=== PATIENT | male | born 1955 | race Caucasian/White ===

== ENCOUNTER 2024-10-21 11:38 | Emergency (ER) | payer OTHER ==
[~2024-10-21] VITALS: Ht 170.2 cm; Wt 69.2 kg
--- NOTE | 2024-10-21 11:56 | ED.PDOC ---
HPI (NEURO) HPI Comments Poor Historian. 69y M who presents to the ED with the his five. Patient was sent directly from Radiology outpatient center after abnormal findings on his CT scan of the head. -Per pt , pt was at [facility] office today and had CT head with and w/o contrast study and told to come to the ED due to abnormal findings on CT report -Pt presents to the ED, with no complaints whatsoever. [facility] office was called with phone number provided by who faxed CT report with the following: Impression: Findings consistent with large subacute hemorrhagic cortical infarct involving the left frontal lobe. Infarct and edema extends along the cortex and cm anterior posterior extent. Additional blood products along the cortex or bubble subacute hematoma is possible proteinaceous fluid collections associated with the area of infarction. Edema at the apparent an effort site crate a partial effacement of the left lateral ventricle and a 4 mm midline shift to the right. Remains blood flow in the internal carotid arteries an M1 course of the left middle cerebral artery at the distal branches. Mild leukoencephalopathy at the partial occipital region separate from the area of cortical infarct and edema. Follow up MRI of the brain with without contrast recommended and follow up CT exams. -Pt states pt spouse had not been speaking to and noted pt exhibiting weakness and called EMS 1 week ago. Pt spouse states EMS told pt to get onto gurney to be taken to ED but pt refused and EMS told they cannot take pt without the patient willingness and EMS left residence -PT states pt continued to act abnormal and was referred to get outpatient CT Head done which pt was at today. Per , patient has been having difficulty with his speech and has been acting differently lately. She says that his speech has improved slightly in the last few days. Patient is not on any blood thinners. Past Medical History: DM 2, low blood pressure, hyperlipidemia, L eye cataract Past Surgical History: carotid artery procedure the end of September. allergies: nkda social history: endorses tobacco use, deneis ETOH use, denies drug use REVIEW OF SYSTEMS: CONSTITUTIONAL: Denies acute: fever, diaphoresis, chills, HEAD: Denies acute: headache, photophobia Eyes: Denies acute: Double vision, vision loss, eye pain, eye discharge. EARS: Denies acute: tinnitus, hearing loss, ear discharge, ear pain, THROAT: Denies acute: sore throat, swelling, difficulty swallowing , pain with swallowing, change in voice. NECK: Denies acute: neck pain, neck swelling, stiff neck. HEART: Denies acute : chest pain, palpitations, LUNGS: Denies acute: SOB, wheezing, cough, hemoptysis ABDOMEN: Denies acute: abdominal pain, Nausea, Vomiting, diarrhea, melena , hematemesis, hematochezia SKIN: Denies acute: rash, redness, lesions, itchiness. EXTREMITIES: Denies acute: calf pain, numbness, tingling, weakness, denies pain in extremity. Denies acute: Low back pain. Neuro: Denies acute: motor or sensory focal neurological deficit, tremors, seizure like activity, confusion, dizziness, change in mental status, loss of bowel or bladder function, cauda equina like symptoms. : Denies acute: dysuria, hematuria, flank pain, increase in urinary frequency. PSYCH: Denies acute: hallucination, suicidal ideation, homicidal ideation. PHYSICAL EXAM: General: no acute distress, awake and alert. Head: normocephalic, atraumatic. Neck: supple, trachea is midline, no swelling. Throat: Normal phonation. Eyes:, no erythema, no purulent discharge, no proptosis, no icterus. Heart: regular rate, regular rhythm, no significant murmur appreciated. Lungs: no apparent respiratory distress, Able to speak in full sentences. No wheezing, no rhonchi, no crackles. No stridors Clear to auscultation bilaterally. Abdomen: non tender to palpation, non distended, soft, no guarding, no rebound, + bowel sounds. Neuro: Awake, Alert, oriented to name, self, situation, follows commands GCS=15. Speech is normal. Skin: no petechia, no purpura, no cyanosis, non-pale, not jaundice. Lower extremities: --no - Pitting edema no deformity, no focal swelling, no calf TTP. Makes eye contact. moves all four extremities. Face: no apparent facial droop. Ambulating in the ED independently. Stroke: finger to nose cerebellar testing is intact. Slight right pronator drift. PERRLA, EOM-I CN 2-12 are grossly intact, No nystagmus. No nuchal rigidity, Kernig's sign, Brudzinski's sign, no meningeal signs. ED COURSE: Chief Complaint: Abnormal LAB's Time Seen by MD: 11:44 Reviewed Notes: Nurses Notes, Allergies Information Source: Patient, Spouse Mode of Arrival: Ambulatory Was a procedure done? Was a procedure done?: No Differential Diagnosis (SZ) Seizure: N/A CVA: Other (Stroke: DDX include TIA, TGA, CVA, intracranial bleed/mass/infection, cerebellar ischemia/infarct, carotid stenosis, lacunar infarct, vertebral/carotid artery dissection,, vertebrobasillary insufficiency, BPV, encephalopathy, electrolyte abnormality, thyroid disease, hydrocephalus, Kidder palsy, multiple sclerosis, hypoglycemia, drug toxicity, cardiac arrhythmia, todds paralysis, seizure.) X-Ray, Labs, Meds, VS Vital Signs Date Time Temp Pulse Resp B/P (MAP) Pulse Ox O2 Delivery O2 Flow Rate FiO2 10/21/24 14:28 71 10/21/24 14:00 75 16 128/73 (91) 93 10/21/24 13:55 77 16 95 Room Air* 0 21 10/21/24 13:55 97.1 72 18 129/58 (81) 95 97.1 10/21/24 11:55 78 10/21/24 11:48 97.5 83 20 97/61 (73) 95 97.5 Lab Test 10/21/24 14:38 10/21/24 12:20 10/21/24 11:51 Range/Units Troponin I High Sensitivity 6 6 </=54 ng/L White Blood Count 11.0 H 4.4-10.8 10^3/uL Red Blood Count 5.74 4.5-5.90 10^6/uL Hemoglobin 16.5 13.5-17.5 g/dL Hematocrit 49.2 41.0-53.0 % Mean Corpuscular Volume 85.8 80.0-100.0 fL Mean Corpuscular Hemoglobin 28.8 28.0-32.0 pg Mean Corpuscular Hemoglobin Concent 33.5 32.0-36.0 g/dL Red Cell Distribution Width 14.6 H 11.8-14.3 % Platelet Count 343 140-450 10^3/uL Mean Platelet Volume 7.8 6.9-10.8 fL Neutrophils (%) (Auto) 59.7 37.0-80.0 % Lymphocytes (%) (Auto) 32.8 10.0-50.0 % Monocytes (%) (Auto) 5.3 0.0-12.0 % Eosinophils (%) (Auto) 1.3 0.0-7.0 % Basophils (%) (Auto) 0.9 0.0-2.0 % Neutrophils # (Auto) 6.6 1.6-8.6 10 ^3/uL Lymphocytes # (Auto) 3.6 0.4-5.4 10 ^3/uL Monocytes # (Auto) 0.6 0-1.3 10 ^3/uL Eosinophils # (Auto) 0.1 0-0.8 10 ^3/uL Basophils # (Auto) 0.1 0-0.2 10 ^3/uL Nucleated Red Blood Cells 0.1 % Prothrombin Time 10.9 9.3-11.8 sec Prothrombin Time INR 1.03 0.9-1.15 Activated Partial Thromboplast Time 26.2 24.5-34.5 SEC Sodium Level 143 136-145 mmol/L Potassium Level 4.7 3.5-5.1 mmol/L Chloride Level 108 H 98-107 mmol/L Carbon Dioxide Level 30 20-31 mmol/L Anion Gap 5 5-15 Blood Urea Nitrogen 23 9-23 mg/dL Creatinine 0.85 0.700-1.30 mg/dL Glomerular Filtration Rate Calc 93 >90 mL/min BUN/Creatinine Ratio 27.1 H 10.0-20.0 Serum Glucose 164 H 74-106 mg/dL Lactic Acid Level 1.3 0.4-2.0 mmol/L Calcium Level 10.7 H 8.7-10.4 mg/dL Magnesium Level 1.6 1.6-2.6 mg/dL Total Bilirubin 0.7 0.2-1.0 mg/dL Aspartate Amino Transferase (AST) < 8 L 13-40 U/L Alanine Aminotransferase (ALT) 27 7-40 U/L Alkaline Phosphatase 121 H 46-116 U/L B-Type Natriuretic Peptide 109.48 0-100 pg/mL Total Protein 7.1 5.7-8.2 g/dL Albumin 4.7 3.2-4.8 g/dL POC Glucose 153 H 70-106 mg/dl Current Medications Medications (Trade) Dose Ordered Sig/August Route Start Time Stop Time Status Last Admin Levetiracetam 100 ml @ 400 mls/hr ONCE ONCE IV 10/21/24 15:45 10/21/24 15:59 DC 10/21/24 15:48 Time of 1ST Reevaluation: 12:40 (The case was discussed with the [facility] ER (HPI, physical exam, labs and diagnostic tests that were available at the time of disposition, ED course, treatment plan) on the phone. They agreed to accept the patient to their facility for higher level of care. Dr. Blackmon. ) Reevaluation 1ST: Unchanged Patient Education/Counseling: Diagnosis, Treatment Family Education/Counseling: Diagnosis, Treatment Comments Patient presented with the above HPI.--stroke-like symptoms----workup was initiated. patient was found with the above mentioned diagnosis. the following medications were ordered: please refer to order lists of meds and tests obtained by myself Dr. Vasquez. Patient ED course and VS have been stabilized. Patient has been reassessed in the ED and remained in a stable condition. Pertinent incidental findings were discussed with the patient and/or family. Patient/family voices understanding and is agreeable with plan. Patient has been observed in the ED adequate length of time to insure improvement/stability. Escalation of care considered: Consideration of escalation to observation or admission [facility] was consulted for higher level of care transfer. Patient was placed for transfer in to the ER at [facility] team for further evaluation and treatment of their presentation. And also for neurosurgical intervention. Later patient insisted on leaving against medical advice. I spoke with him and his in in treated him to stay but he refuses for no good reason. All the reports of any imaging studies that were ordered by myself were reviewed by myself. Departure 1 Departure Time of Disposition: 12:04 Impression: Primary Impression: Subacute intracranial hemorrhage Additional Impressions: Hemorrhagic stroke Midline shift of brain Midline shift of brain due to hematoma Left against medical advice Disposition: 02 SHORT TERM HOSPITAL Admit to: Tele Condition: Critical Discharged With: Self, Spouse Critical Care Note Critical Care Time?: Yes Heart Score Heart Score: Heart Score Response (Comments) Value History N/A 0 EKG N/A 0 Age N/A 0 Risk Factors N/A 0 Troponin N/A 0 Total 0 I personally scribed for WALESKA VASQUEZ DO ([facility]) on 10/21/24 at 11:56. Electronically submitted by Sage Andrew ([facility]). I personally scribed for WALESKA VASQUEZ DO ([facility]) on 10/21/24 at 12:21. Electronically submitted by Sage Andrew ([facility]). WALESKA VASQUEZ DO Oct 21, 2024 11:56
--- NOTE | 2024-10-21 12:12 | DVH ---
CHEST RADIOGRAPH Indication: stroke Technique: Single frontal view of the chest was obtained COMPARISON: None FINDINGS: Lines and Tubes: None Lungs: Clear Pleura: No effusion. No pneumothorax. Cardiomediastinal contours: Unremarkable Bones: Unremarkable IMPRESSION: No acute disease.
[2024-10-21 12:40] LABS: Basophils # (auto) 0.1 10 ^3/uL (0-0.2); Basophils % (auto) 0.9 % (0.0-2.0); Eosinophils # (auto) 0.1 10 ^3/uL (0-0.8); Eosinophils % (auto) 1.3 % (0.0-7.0); Hematocrit 49.2 % (41.0-53.0); Hemoglobin 16.5 g/dL (13.5-17.5); Lymphocytes # (auto) 3.6 10 ^3/uL (0.4-5.4); Lymphocytes % (auto) 32.8 % (10.0-50.0); Mean Corpuscular Hemoglobin 28.8 pg (28.0-32.0); Mean Corpuscular Hgb Conc. 33.5 g/dL (32.0-36.0); Mean Corpuscular Volume 85.8 fL (80.0-100.0); Monocytes # (auto) 0.6 10 ^3/uL (0-1.3); Monocytes % (auto) 5.3 % (0.0-12.0); Neutrophils # (auto) 6.6 10 ^3/uL (1.6-8.6); Neutrophils % (auto) 59.7 % (37.0-80.0); Nucleated Red Blood Cells % 0.1 %; Platelet Count (auto) 343 10^3/uL (140-450); Red Blood Cells 5.74 10^6/uL (4.5-5.90); Red Cell Distribution Width 14.6 % (11.8-14.3)
[2024-10-21 12:54] LABS: INR 1.03 (0.9-1.15); Partial Thromboplastin Time 26.2 SEC (24.5-34.5); Prothrombin Time 10.9 sec (9.3-11.8)
[2024-10-21 13:04] LABS: Alanine Aminotransferase 27 U/L (7-40); Albumin 4.7 g/dL (3.2-4.8); Alkaline Phosphatase 121 U/L (46-116); Anion Gap 5 (5-15); Aspartate Aminotransferase < 8 U/L (13-40); BUN/Creatinine Ratio 27.1 (10.0-20.0); Bilirubin, Total 0.7 mg/dL (0.2-1.0); Blood Urea Nitrogen 23 mg/dL (9-23); Carbon Dioxide 30 mmol/L (20-31); Chloride 108 mmol/L (98-107); Glucose 164 mg/dL (74-106); Potassium 4.7 mmol/L (3.5-5.1); Sodium 143 mmol/L (136-145); Total Protein 7.1 g/dL (5.7-8.2)
[2024-10-21 13:05] LABS: Calcium 10.7 mg/dL (8.7-10.4); Magnesium 1.6 mg/dL (1.6-2.6)
[2024-10-21 13:55] VITALS: PULSE 77; RESP 16; TEMP 97.1; O2SAT 95
[2024-10-21 14:00] VITALS: BP 128/73; RESP 16; O2SAT 93
[2024-10-21 14:28] VITALS: PULSE 71
[2024-10-21] MEDS: levETIRAcetam 1000 mg/100ml 100 ML IV ONE (15:48)
--- NOTE | 2024-10-22 12:19 | ECG ---
[facility] Test Date: 2024-10-21 Test Time: 11:55:26 Pat Name: MARIE PEARL Department: ED Room: Gender: M Lead Sales Consultant: MELANY : 1955 Requested By: WALESKA GIMENEZ Order Number: [id number] Reading MD: Son Patten Measurements Intervals [place] Rate: 78 P: 16 CO: 151 QRS: 36 QRSD: 119 T: 29 QT: 410 QTc: 468 Interpretive Statements Sinus rhythm Ventricular trigeminy Nonspecific intraventricular conduction delay Low voltage, extremity leads Consider inferior infarct Minimal ST elevation, lateral leads Electronically Signed On 10-23-2024 17:34:16 PDT by Son Patten Please click the below link to view image of tracing.
== END 2024-10-21 17:31 | disposition left against medical advice (07) ==
LOC: ER 11:38
DX: I62.9 Nontraumatic intracranial hemorrhage, unspecified (principal); G93.5 Compression of brain; E11.9 Type 2 diabetes mellitus without complications; E78.5 Hyperlipidemia, unspecified
CPT/HCPCS: 36415; 71045; 80053; 82947; 83605; 83735; 83880; 84484; 85025; 85610; 85730; 93005; 96374; 99285; J1953; 82962; 96365